=== PATIENT | male | born 1975 | race African-American/Black ===

== ENCOUNTER → 2021-02-05 | Outpatient (CLI) | payer OTHER ==
--- NOTE | 2021-02-05 17:22 | RAD ---
XR EXAM OF ANKLE_RIGHT 3VIEWS DATE: 02/05/2021 3:23 PM INDICATION: RIGHT ANKLE PAIN COMPARISON: None. FINDINGS: Postsurgical changes of ORIF of the distal fibula with lateral plate and screw fixation. Surgical diogo dware is intact. No periscrew lucency. Ossification of the interosseous membrane. Ankle mortise is co ngruent. IMPRESSION: No acute osseous abnormality. Distal fibula ORIF with intact surgical hardware. Electronically signed by: John Scott MD (02/05/2021 5:20 PM) [id number]
== END ==
LOC: RAD 15:11
PROVIDERS: ATTEND Orthopaedic Surgery
DX: M25.571 Pain in right ankle and joints of right foot (principal); Z98.890 Other specified postprocedural states
CPT/HCPCS: 73610

== ENCOUNTER → 2021-04-14 | Outpatient (CLI) | payer OTHER ==
--- NOTE | 2021-04-15 11:13 | RAD ---
EXAM: 3 views right ankle DATE: 04/14/2021 4:16 PM INDICATION: Reason: POST OP HARDWARE REMOVAL X 3 WEEKS AGO, PAIN / Spl. Instructions: / History: . COMPARISON: 02/05/2021 FINDINGS/ IMPRESSION: Interval removal of lateral fibular sideplate and screw device. Anterior approach distal fibular meta physeal screw is stable in appearance. Cross bridging/fusion of the distal fibula and tibia. No acute fracture or dislocation. Electronically signed by: Danny Hart MD (04/15/2021 11:11 AM) [id number]
== END ==
LOC: RAD 15:47
PROVIDERS: ATTEND Orthopaedic Surgery
DX: M25.571 Pain in right ankle and joints of right foot (principal); Z96.661 Presence of right artificial ankle joint
CPT/HCPCS: 73610

== ENCOUNTER → 2021-07-02 | Outpatient (CLI) | payer OTHER ==
--- NOTE | 2021-07-02 16:46 | RAD ---
EXAM: Right ankle, 3 views. HISTORY: Pain. COMPARISON: 04/14/2021 FINDINGS: 3 views of the right ankle are obtained. There are findings consistent with prior internal fixation of a distal fibular fracture. There has been explantation of prior instrumentation, with exc eption of a single distal fibular screw. There is ossification along the inferior interosseous ligame nt. The ankle mortise is intact. There is no osteochondral lesion. No acute fracture is seen. IMPRESSION: 1. Stable findings consistent with prior distal fibular fracture fixation. 2. Soft tissue edema. Electronically signed by: Martha Patterson MD (07/02/2021 4:43 PM) [id number]
== END ==
LOC: RAD 15:47
PROVIDERS: ATTEND Orthopaedic Surgery
DX: M67.873 Other specified disorders of tendon, right ankle and foot (principal); R60.9 Edema, unspecified
CPT/HCPCS: 73610